=== PATIENT | male | born 1990 | race Caucasian/White ===

== ENCOUNTER 2019-02-06 20:19 | Emergency (ER) | payer OTHER ==
[~2019-02-06] VITALS: Ht 175.3 cm; Wt 77.1 kg
[2019-02-06] MEDS ORDERED: OLANZAPINE 5 MG TABLET PO ONE (20:45)
--- NOTE | 2019-02-06 20:45 | NUR ---
Patient BIB [facility] from [place] [id number] for c/o ETOH. Patient upon arrival smells of ETOH,sobing stating "I feel depressed." Patient denies SI,homicidal ideation. Per report patient girlfriend left him.
[2019-02-06] MEDS: LORAZEPAM 2 MG/1 ML VIAL IV ONE ×2 (20:46→21:16)
[2019-02-06] MEDS ORDERED: LIDOCAINE 2% (UROJET) 10 ML JELLY MM ONE ×2 (20:50→21:00)
[2019-02-06 21:08] LABS: BASOPHILS # (AUTO) 0.1 K/uL (0.0-8.0); EOSINOPHILS % (AUTO) 0.1 % (0.0-7.0); HEMATOCRIT 41.3 % (36.7-47.1); HEMOGLOBIN 13.9 g/dL (12.5-16.3); LYMPHOCYTES % (AUTO) 30.1 % (20.5-51.5); MEAN CORPUSCULAR HEMOGLOBIN 29.1 uug (23.8-33.4); MEAN CORPUSCULAR HGB CONC 34 g/dL (32.5-36.3); MEAN CORPUSCULAR VOLUME 86.6 fL (73.0-96.2); MONOCYTES # (AUTO) 0.8 K/uL (2.0-10.0); NEUTROPHILS # (AUTO) 6.1 K/uL (1.8-8.9); NEUTROPHILS % (AUTO) 60.8 % (38.5-71.5); PLATELET COUNT (AUTO) 341 K/uL (152-348); RED BLOOD CELL COUNT(AUTO) 4.77 MIL/uL (4.06-5.63)
[2019-02-06 21:09] LABS: *BILIRUBIN,URIN NEGATIVE (NEGATIVE); *BLOOD, URINE NEGATIVE (NEGATIVE); *CLARITY,URINE CLEAR (CLEAR); *COLOR,URINE YELLOW (YELLOW); *KETONES,URINE NEGATIVE (NEGATIVE); *UROBILINOGEN,URINE 0.2 E.U./dl (NORMAL); LEUKOCYTE ESTERASE ,URINE NEGATIVE (NEGATIVE); NITRITE, URINE NEGATIVE (NEGATIVE); PH,URINE 8.5 (5.0-8.0); UGLUCOSE NEGATIVE (NEGATIVE)
[2019-02-06] MEDS ORDERED: LORAZEPAM 1 MG TABLET ONE (21:15)
[2019-02-06 21:16] LABS: CARBON DIOXIDE 22 mmol/L (21-32); CHLORIDE 105 mmol/L (98-107); CREATININE 0.8 mg/dL (0.6-1.3); GLUCOSE 108 mg/dL (74-106); POTASSIUM 3.4 mmol/L (3.5-5.1); UREA NITROGEN, BLOOD 10 mg/dL (7-18)
[2019-02-06 21:16] LABS: MUCUS,URINE FEW /LPF (0-FEW); SQUAMOUS EPITHELIAL CELL,UR NONE SEEN /HPF (NONE SEEN)
[2019-02-06] MEDS ORDERED: OLANZAPINE 5 MG TABLET ONE (21:16)
[2019-02-06 21:17] LABS: BACTERIA,URINE NONE SEEN /HPF (NONE SEEN)
[2019-02-06 21:22] LABS: ALANINE AMINOTRANSFERASE 99 U/L (16-63); ALKALINE PHOSPHATASE 92 U/L (50-136); ASPARTATE AMINOTRANSFERASE 104 U/L (15-37); BILIRUBIN,DIRECT 0.1 mg/dL (0.0-0.2); BILIRUBIN,TOTAL 0.3 mg/dL (0.2-1.0); TOTAL PROTEIN, SERUM 8.3 g/dL (6.4-8.2)
[2019-02-06 21:24] LABS: ACETAMINOPHEN < 2.0 ug/mL (10-30)
[2019-02-06 21:32] LABS: *AMPHETAMINE, URINE NEGATIVE (NEGATIVE); *BARBITURATE, URINE NEGATIVE (NEGATIVE); *CANNABINOID, URINE NEGATIVE (NEGATIVE); *COCCAINE, URINE NEGATIVE (NEGATIVE); *OPIATE, URINE NEGATIVE (NEGATIVE); *PHENCYCLIDINE SCREEN,URINE NEGATIVE (NEGATIVE)
[2019-02-06 21:39] LABS: ETHANOL 390 MG/DL (0-0)
--- NOTE | 2019-02-06 21:50 | NUR ---
Patient A/Ox3,ambulatory with steady gait. requesting to be d/c'ed/ Dr Ríos aware
--- NOTE | 2019-02-06 22:00 | NUR ---
IV removed. Catheter intact and site benign. Pressure and 4x4 gauze applied to site. No bleeding noted.
--- NOTE | 2019-02-06 22:10 | NUR ---
Patient discharged to home in stable conditon. Written and verbal after care instructions given. Patient verbalizes understanding of instructions. Walked out of er with no distress.
[2019-02-06 22:13] VITALS: BP 118/65
== END 2019-02-06 22:13 | disposition home or self-care (01) ==
LOC: ER 20:21
DX: F10.129 Alcohol abuse with intoxication, unspecified (principal); Y90.8 Blood alcohol level of 240 mg/100 ml or more
CPT/HCPCS: 36415; 80048; 80076; 80307; 81000; 81001; 85025; 93005; 96374; 99284; G0480 ×2; G0481; A4663; C1758

== ENCOUNTER 2019-02-08 00:41 | Emergency (ER) | payer OTHER ==
[~2019-02-08] VITALS: Ht 175.3 cm; Wt 81.6 kg
--- NOTE | 2019-02-08 00:55 | NUR ---
Dr. Sidhu at bedside for MSE.
[2019-02-08] MEDS ORDERED: LORAZEPAM 2 MG/1 ML VIAL IV ONE ×3 (01:00→09:00)
[2019-02-08 01:30] LABS: BASOPHILS # (AUTO) 0.1 K/uL (0.0-8.0); BASOPHILS % (AUTO) 0.7 % (0.0-2.0); EOSINOPHILS % (AUTO) 0.3 % (0.0-7.0); HEMATOCRIT 45.3 % (36.7-47.1); HEMOGLOBIN 15.5 g/dL (12.5-16.3); LYMPHOCYTES # (AUTO) 2.1 K/uL (20.0-40.0); LYMPHOCYTES % (AUTO) 24.4 % (20.5-51.5); MEAN CORPUSCULAR HEMOGLOBIN 29.5 uug (23.8-33.4); MEAN CORPUSCULAR HGB CONC 34 g/dL (32.5-36.3); MEAN CORPUSCULAR VOLUME 85.9 fL (73.0-96.2); MONOCYTES # (AUTO) 0.5 K/uL (2.0-10.0); MONOCYTES % (AUTO) 5.9 % (0.0-11.0); NEUTROPHILS % (AUTO) 68.7 % (38.5-71.5); PLATELET COUNT (AUTO) 337 K/uL (152-348); RED BLOOD CELL COUNT(AUTO) 5.27 MIL/uL (4.06-5.63); WHITE BLOOD COUNT (AUTO) 8.8 K/uL (3.6-10.2)
[2019-02-08] MEDS ORDERED: LORAZEPAM 2 MG/1 ML VIAL ONE ×3 (01:33→08:51)
[2019-02-08 01:41] LABS: BILIRUBIN,DIRECT 0.1 mg/dL (0.0-0.2); BILIRUBIN,TOTAL 0.3 mg/dL (0.2-1.0); CREATININE 0.9 mg/dL (0.6-1.3); POTASSIUM 3.5 mmol/L (3.5-5.1); TOTAL PROTEIN, SERUM 8.7 g/dL (6.4-8.2)
--- NOTE | 2019-02-08 03:30 | NUR ---
Pt states that he was in rehab with his girlfriend, they had a fight and she left him, and since then has been living in [address] and drinking. Pt states he's not homeless and was living in [place]. Pt requests to see a aids social worker or to be referred to rehab facility. notified.
--- NOTE | 2019-02-08 05:54 | NUR ---
Pt provided urine sample, sent to lab.
[2019-02-08 06:08] LABS: *AMPHETAMINE, URINE NEGATIVE (NEGATIVE); *BARBITURATE, URINE NEGATIVE (NEGATIVE); *CANNABINOID, URINE NEGATIVE (NEGATIVE); *COCCAINE, URINE NEGATIVE (NEGATIVE); *OPIATE, URINE NEGATIVE (NEGATIVE); *PHENCYCLIDINE SCREEN,URINE NEGATIVE (NEGATIVE)
--- NOTE | 2019-02-08 06:44 | NUR ---
Pt sleeping in bed, no acute signs of distress.
--- NOTE | 2019-02-08 07:04 | NUR ---
Report given to Filipe gee.
--- NOTE | 2019-02-08 08:53 | NUR ---
pt is resting in bed comfortably no s/s of acute distress at this time.
--- NOTE | 2019-02-08 10:21 | NUR ---
PT WAS GIVEN FOOD SUPPLIES AND VATER. PT WAS PROVIDED WITH ALL INFORMATION ABOUT HEALTH CARE HELP, HOUSING / SHELTERS, FACILITIES AND RESOURSES TO HELP WITH DRUGS AND ALCOHOL ABUSE. PT REFUSED TO TALK TO [employer] O[employer] APPRENTICE. HE STATED [facility] BY HIS OWN TRANSPORTATION.
--- NOTE | 2019-02-08 10:37 | NUR ---
DR LORA RE-EVALUATED THE PT. PT WAS D/C'd TO HOME D/C INSTRUCTIONS GIVEN TO THE PT.
[2019-02-08 11:22] VITALS: BP 139/98
== END 2019-02-08 11:22 | disposition home or self-care (01) ==
LOC: ER 00:43
DX: F10.129 Alcohol abuse with intoxication, unspecified (principal); F32.9 Major depressive disorder, single episode, unspecified; R19.7 Diarrhea, unspecified; Z59.0 Homelessness; Y90.8 Blood alcohol level of 240 mg/100 ml or more
CPT/HCPCS: 36415; 80048; 80076; 80307; 85025; 96374; 96376; 99283; G0480 ×2; J2060 ×3; A4663